=== PATIENT | female | born 1995 | race Caucasian/White ===

== ENCOUNTER 2019-05-23 15:34 | Outpatient (REF) | payer OTHER, SELFPAY ==
--- NOTE | 2019-05-23 15:00 | PAPFT_PTH ---
PATIENT: DAVID JANE LOC: [facility]#:[id number] AGE/SX: 23/F ROOM: RE05/23/[address]: Shante Jenkins : 1995 BED: DIS: 05/23/2019 SPEC #: [id number] RECD: 05/23/19 18:28 STATUS: RINKU REQ #: [id number] [place]IL[place]ERT: 05/23/19 15:[address]: Shante Jenkins DEPT: COUNTS INCLUDE 234 BEDS AT THE [facility] Cytology RECD BY: Michelle Small ENTERED: 05/23/19 18:28 SP TYPE: PAPFT OTHR DR: Rivera Carson MD Tissues: 1 - CX/ENDOCX FOR PAP SMEARS Procedures: PAP THIN PREP/[facility] Screening Comments: [id number]
[2019-05-23 19:12] LABS: Abs Immature Grans 0.01 k/cumm (0.0-0.09); Absolute Basophil Count 0.03 k/cumm (0.0-0.2); Absolute Eosinophil Count 0.16 k/cumm (0.0-0.7); Absolute Lymphocyte Count 2.01 k/cumm (1.2-3.4); Absolute Monocyte Count 0.49 k/cumm (0.11-0.7); Absolute Neutrophil Count 4.48 k/cumm (1.2-6.7); Basophils % 0.4; Eosinophils % 2.2; HGB 14.8 g/dL (12.0-15.5); Immature Grans % 0.1 %; Mean Corp. HGB Concentration 33.6 g/dL (32.0-36.0); Mean Corpuscular Volume 89.1 fL (80-95); Mean Platelet Volume 9.9 fL (8.0-11.0); Monocytes % 6.8; Neutrophils % 62.5; Platelet Count 319 x1000/uL (130-400); RBC 4.94 m/cumm (4.00-5.20); RBC Distribution Width 11.8 % (11.7-14.6); White Blood Cell Count 7.18 k/cumm (4.4-10.8)
[2019-05-25 16:32] LABS: G-6-PD, Qn, RBC 11.5 U/g Hb (8.8 - 13.4)
[2019-05-27 10:31] LABS: HIV-1/2 Ag & Ab Screen Negative (Negative)
[2019-05-30 12:13] LABS: Misc Referral (MAYO) See Comments
== END 2019-05-23 15:54 ==
LOC: NCHCN 15:34
PROVIDERS: PCP Pediatrics; Visit Provider Nurse Practitioner Family
DX: Z00.00 Encounter for general adult medical examination without abnormal findings (principal); F43.23 Adjustment disorder with mixed anxiety and depressed mood; R00.2 Palpitations; L65.9 Nonscarring hair loss, unspecified; N92.6 Irregular menstruation, unspecified; K59.00 Constipation, unspecified; Z12.4 Encounter for screening for malignant neoplasm of cervix; Z01.419 Encounter for gynecological examination (general) (routine) without abnormal findings
CPT/HCPCS: 86682; 87389; 88142; 82955; 84443; 85025

== ENCOUNTER 2019-05-24 12:44 | Outpatient (REF) | payer OTHER, SELFPAY | END 2019-05-24 13:04 | LOC: NCHCN 12:44 | PROVIDERS: PCP Pediatrics; Visit Provider Nurse Practitioner Family | DX: K59.00 Constipation, unspecified (principal) | CPT/HCPCS: 87177 ==

== ENCOUNTER 2019-05-25 12:48 | Outpatient (REF) | payer OTHER, SELFPAY | END 2019-05-25 13:08 | LOC: NCHCN 12:48 | PROVIDERS: PCP Pediatrics; Visit Provider Nurse Practitioner Family | DX: K59.00 Constipation, unspecified (principal) | CPT/HCPCS: 87177 ==

== ENCOUNTER 2019-05-27 12:41 | Outpatient (REF) | payer OTHER, SELFPAY | END 2019-05-27 13:01 | LOC: NCHCN 12:41 | PROVIDERS: PCP Pediatrics; Visit Provider Nurse Practitioner Family | DX: K59.00 Constipation, unspecified (principal) | CPT/HCPCS: 87177 ==